=== PATIENT | female | born 1990 | race Asian ===

== ENCOUNTER 2022-05-19 14:17 | Emergency (ER) | payer OTHER ==
[~2022-05-19] VITALS: Ht 157.5 cm; Wt 52.2 kg
== END 2022-05-19 20:08 | disposition home or self-care (01) ==
LOC: ER 14:17
DX: R10.2 Pelvic and perineal pain (principal)

== ENCOUNTER 2025-02-02 09:48 | Outpatient (CLI) | payer OTHER | END 2025-02-02 09:54 | disposition home or self-care (01) | LOC: RAD 09:48 | PROVIDERS: ATTEND General Practice | DX: M25.541 Pain in joints of right hand (principal); M25.531 Pain in right wrist ==